=== PATIENT | female | born 1995 | race African-American/Black ===

== ENCOUNTER 2018-07-14 10:47 | Emergency (ER) | payer OTHER ==
--- NOTE | 2018-07-14 11:49 | ED Physician Documentation ---
PD HPI URI - Stated complaint Stated Complaint: FEVER/CHILLS/COUGH - Chief complaint Chief Complaint: Heent - History obtained from History obtained from: Patient - History of Present Illness Timing - onset: How many weeks ago (1) Timing duration: Weeks (1) Timing details: Gradual onset, Still present Associated symptoms: Fever, Nasal congestion, Sore throat, Productive cough. No: Hemoptysis, NVD Contributing factors: No: Sick contact Similar symptoms before: Has not had sx before Recently [facility] and cough drops and Mucinex. She states she has not improved. She has increasing sore throat the last couple of days. She has continued cough and is now productive of yellowish sputum. She denies any wheezing.) Review of Systems Constitutional: reports: Fever Nose: reports: Congestion. denies: Rhinorrhea / runny nose Throat: reports: Sore throat Cardiac: reports: Chest pain / pressure (with cough) Respiratory: reports: Dyspnea, Cough. denies: Wheezing GI: denies: Nausea, Vomiting, Diarrhea Skin: denies: Rash, Lesions PD PAST MEDICAL HISTORY - Past Medical History Past Medical History: No Cardiovascular: None Respiratory: None Neuro: None Endocrine/Autoimmune: None GI: None [employer] MANAGER: None : None HEENT: None Psych: None Musculoskeletal: None Derm: None - Past Surgical History Past Surgical History: No - Present Medications Home Medications: Ambulatory Orders Medication Instructions Recorded Confirmed Amoxicillin 500 mg PO TID #21 capsule 07/14/18 Dexamethasone [Decadron] 4 mg PO DAILY #5 tablet 07/14/18 guaiFENesin/CODEINE [Robitussin AC] 10 ml PO Q6H PRN #240 ml 07/14/18 - Allergies Allergies/Adverse Reactions: Allergies Allergy/AdvReac Type Severity Reaction Status Date / Time No Known Drug Allergies Allergy Verified 07/14/18 11:01 - Social History Does the pt smoke?: No Smoking Status: Never smoker Does the pt drink ETOH?: Yes ETOH Use: Wine, Beer, Liquor Does the pt have substance abuse?: No - Immunizations Immunizations are current?: Yes - POLST Patient has POLST: No PD ED PE NORMAL - Vitals Vital signs reviewed: Yes - General General: Alert and oriented X 3, No acute distress, Well developed/nourished - HEENT HEENT: Ears normal, Moist mucous membranes. No: Pharynx benign (There is tonsillar swelling on the right with some white spotty exudate. There is very slight peritonsillar edema without any bulging or fluctuance. Anterior adenopathy is mild.) - Neck Neck: Supple, no meningeal sign - Cardiac Cardiac: RRR, No murmur - Respiratory Respiratory: Clear bilaterally - Abdomen Abdomen: Soft, Non tender - Derm Derm: Normal color, Warm and dry Results - Vitals Vitals: Vital Signs - 24 hr 07/14/18 07/14/18 11:00 12:26 Temperature 37.1 C 36.3 C L Heart Rate 84 84 Respiratory 18 16 Rate Blood Pressure 136/69 H 130/86 H O2 Saturation 100 99 Oxygen O2 Source Room air - Labs Labs: Laboratory Tests 07/14/18 11:03 Group A Strep Rapid Negative PD MEDICAL DECISION MAKING - ED course Complexity details: considered differential (Sounds like a viral upper respiratory infection with cough. There is now however some sore throat with some peritonsillar swelling on the right. I will add some antibiotics for consideration of a secondary infection. She will benefit from some steroids.), d/w patient Departure - Departure Disposition: Home, Self Care Clinical Impression: Peritonsillar cellulitis Upper respiratory infection Qualifiers: URI type: unspecified URI Qualified Code(s): J06.9 - Acute upper respiratory infection, unspecified Condition: Stable Record reviewed to determine appropriate education?: Yes Instructions: ED Upper Resp Infec Abx Tx Follow-Up: [facility] [Provider Group] Prescriptions: Amoxicillin 500 mg PO TID #21 capsule Dexamethasone [Decadron] 4 mg PO DAILY #5 tablet guaiFENesin/CODEINE [Robitussin AC] 10 ml PO Q6H PRN #240 ml PRN Reason: Cough Comments: Stay well-hydrated. Continue the Tessalon and Mucinex. Tylenol or ibuprofen if needed for fevers or pains. Add codeine cough medicine for cough and pain. Decadron steroid for the next 5 days will help with inflammation. There is suggestion of bacterial infection as well though the majority is likely viral. We will add amoxicillin for potential bacterial. Off work for couple of days. Recheck if not improving over the next few days. Forms: Activity restrictions Discharge Date/Time: 07/14/18 12:31
[2018-07-14] MEDS ORDERED: DEXAMETHASONE 10 MG/ML VIAL PO STA (12:14)
[2018-07-14] MEDS ORDERED: guaiFENesin/CODEINE 5 ML UDC PO STA (12:14)
[2018-07-14] MEDS ORDERED: AMOXICILLIN 250 MG CAPSULE PO STA (12:14)
[2018-07-14 12:26] VITALS: BP 130/86
[2018-07-14] MEDS ORDERED: CHERRY SYRUP 10 ML UDC PO ONE (12:29)
== END 2018-07-14 12:31 | disposition home or self-care (01) ==
LOC: ED 10:47
DX: J36 Peritonsillar abscess (principal); J06.9 Acute upper respiratory infection, unspecified
CPT/HCPCS: 87070; 87430; 99283; A9270